=== PATIENT | male | born 1995 | race Two or more races ===

== ENCOUNTER 2024-06-29 14:05 | Emergency (ER) | payer OTHER ==
[~2024-06-29] VITALS: Ht 167.6 cm; Wt 63.0 kg
[2024-06-29 14:08] VITALS: BP 150/97; PULSE 98; RESP 20; TEMP 98.1; O2SAT 99
[2024-06-29] MEDS ORDERED: IBUP-1492 PO (14:49)
[2024-06-29] MEDS ORDERED: ACET-2247 PO (14:49)
[2024-06-29] MEDS: ACETAMINOPHEN 325 MG TABLET PO ONE (14:55)
== END 2024-06-29 15:16 | disposition home or self-care (01) ==
LOC: EMS 14:08
DX: S62.335A Displaced fracture of neck of fourth metacarpal bone, left hand, initial encounter for closed fracture (principal); F12.90 Cannabis use, unspecified, uncomplicated; W22.09XA Striking against other stationary object, initial encounter; Y93.89 Activity, other specified; Y92.89 Other specified places as the place of occurrence of the external cause; Y99.8 Other external cause status
CPT/HCPCS: 99283